=== PATIENT | male | born 1985 | race Two or more races ===

== ENCOUNTER 2020-05-27 10:14 | Inpatient (IN) | payer OTHER ==
[2020-05-27 10:23] VITALS: BMI 26.2
[2020-05-27] MEDS ORDERED: IBUPROFEN 600 MG TABLET (FP) PO ONE ×2 (10:34→10:36)
[2020-05-27] MEDS ORDERED: LACTATED RINGERS SOLUTION 1000 ML INFUS.BAG IV ONE (10:57)
[2020-05-27 11:20] LABS: EPI CELLS 15 /uL (0-25.1); HYALINE CASTS 10 /uL (0-3.1); URINE APPEARANCE TURBID; URINE BILIRUBIN 1+ (NEGATIVE); URINE COLOR ORANGE; URINE GLUCOSE (UA) NEGATIVE (NEGATIVE); URINE KETONE NEGATIVE (NEGATIVE); URINE LEUK ESTERASE 1+ (NEGATIVE); URINE NITRITE POSITIVE (NEGATIVE); URINE PROTEIN 2+ (NEGATIVE); URINE RBC 18808 /uL (0-23.9); URINE WBC 111 /uL (0-25.8)
[2020-05-27 11:41] LABS: BASO % 0.8 % (0-2.0); EOS % 2.8 % (0-4.5); HEMATOCRIT 44.5 % (35.4-49); HEMOGLOBIN 15.4 GM/dL (11.7-16.9); LYMPH % 44.4 % (8-40); MCH 28.9 pg (25.7-33.7); MCHC 34.6 g/dl (32.0-35.9); MEAN CELL VOLUME 83.6 fl (80-96); MONO % 7.1 % (3.8-10.2); NEUT % 44.9 % (42.8-82.8); PLATELET COUNT 276 K/MM3 (134-434); RBC 5.33 M/mm3 (4.00-5.60); RDW 13.8 % (11.9-15.9); WHITE BLOOD COUNT 5.4 K/mm3 (4.0-10.0)
[2020-05-27 11:56] LABS: POTASSIUM 4.2 mmol/L (3.5-5.1)
[2020-05-27 11:58] LABS: BLOOD UREA NITROGEN 18.4 mg/dL (7-18)
[2020-05-27 12:01] LABS: CREATININE 1.2 mg/dL (0.55-1.3)
[2020-05-27] MEDS ORDERED: CEFTRIAXONE 1,000 MG in DEXTROSE 5%-WATER - 50 ML IVPB ONE (12:03)
[2020-05-27] MEDS ORDERED: CEFTRIAXONE 1 GM/50 ML BAG ONE (12:06)
[2020-05-27] MEDS ORDERED: TAMSULOSIN HCL 0.4 MG CAP PO ONE (13:01)
[2020-05-27] MEDS ORDERED: MORPHINE SULFATE 2 MG/ML VIAL IVPUSH PRN (13:33)
[2020-05-27] MEDS ORDERED: LACTATED RINGERS SOLUTION 1,000 ML/1,000 ML INFUS.BAG IV SCH (17:15)
[2020-05-28 07:08] VITALS: BP 98/65; PULSE 53; TEMP 97.8
[2020-05-28] MEDS ORDERED: ALBUTEROL SO4 HFA INHALER IH PRN (08:15)
[2020-05-28] MEDS ORDERED: TAMSULOSIN HCL 0.4 MG CAP PO SCH (08:30)
[2020-05-28 08:42] LABS: BASO % 0.6 % (0-2.0); EOS % 4.2 % (0-4.5); HEMATOCRIT 43.3 % (35.4-49); HEMOGLOBIN 14.9 GM/dL (11.7-16.9); LYMPH % 41.1 % (8-40); MCH 28.8 pg (25.7-33.7); MCHC 34.3 g/dl (32.0-35.9); MEAN CELL VOLUME 84.1 fl (80-96); MEAN PLT VOLUME 8.3 fl (7.5-11.1); MONO % 7.4 % (3.8-10.2); NEUT % 46.7 % (42.8-82.8); PLATELET COUNT 232 K/MM3 (134-434); RBC 5.15 M/mm3 (4.00-5.60); RDW 13.9 % (11.9-15.9); WHITE BLOOD COUNT 5.3 K/mm3 (4.0-10.0)
[2020-05-28] MEDS ORDERED: DEXTROSE 5%-WATER - 50 ML IVPB ONE (08:48)
[2020-05-28] MEDS ORDERED: cefTRIAXone SODIUM 1 GM VIAL ONE (08:48)
[2020-05-28 08:55] LABS: POTASSIUM 4.1 mmol/L (3.5-5.1)
[2020-05-28] MEDS ORDERED: CEFTRIAXONE 1 GM in DEXTROSE 5%-WATER - 50 ML IVPB SCH ×2 (09:00→10:00)
[2020-05-28 09:09] LABS: ALBUMIN 3.5 g/dl (3.4-5.0); BLOOD UREA NITROGEN 13.7 mg/dL (7-18)
[2020-05-28 09:10] LABS: CALCIUM 8.6 mg/dL (8.5-10.1); MAGNESIUM 1.9 mg/dL (1.8-2.4)
[2020-05-28 09:14] LABS: BILIRUBIN,TOTAL 0.5 mg/dL (0.2-1); TOT PROT 6.6 g/dl (6.4-8.2)
== END 2020-05-28 11:57 | disposition home or self-care (01) | DRG 690 ==
LOC: JER 10:14 → JERBED 12:04 → J6S 13:09
PROVIDERS: ADMIT Internal Medicine; ATTEND Student in an Organized Health Care Education/Training Program
DX: N13.6 Pyonephrosis (principal); N39.0 Urinary tract infection, site not specified; J45.909 Unspecified asthma, uncomplicated; R10.32 Left lower quadrant pain; R31.9 Hematuria, unspecified
CPT/HCPCS: 36415; 74176-TC; 80048; 80053; 81003; 83735; 84100; 84443; 85025; 87086; 87491; 87591; 93005; 93010; 99285-25; C9803; U0003

== ENCOUNTER 2023-11-26 06:16 | Day surgery (SDC) | payer OTHER ==
[2023-11-21 14:15] VITALS: BMI 25.1
[2023-11-26] MEDS ORDERED: ceFAZolin SODIUM 1 GM VIAL ONE (07:09)
[2023-11-26] MEDS ORDERED: PROPOFOL 40 ML ONE (07:10)
[2023-11-26] MEDS ORDERED: MIDAZOLAM HCL 2 MG/2 ML SINGLE DOSE VIAL ONE (07:10)
[2023-11-26] MEDS ORDERED: DEXAMETHASONE SOD PHOSPHATE 4 MG/1 ML VIAL ONE (07:24)
[2023-11-26] MEDS ORDERED: BUPIVACAINE HCL/PF 0.5% (5MG/ML) 10 ML VIAL ONE (07:25)
[2023-11-26] MEDS ORDERED: LIDOCAINE HCL 1%, 10 MG/ML (20ML VIAL) ONE (07:25)
[2023-11-26] MEDS ORDERED: PROPOFOL 20 ML ONE (08:26)
[2023-11-26] MEDS ORDERED: ONDANSETRON 4 MG/2 ML VIAL IVPUSH PRN (08:44)
[2023-11-26] MEDS ORDERED: oxyCODONE HCL 5 MG TABLET PO PRN (08:44)
[2023-11-26] MEDS ORDERED: LACTATED RINGERS SOLUTION 1,000 ML IV SCH (08:45)
[2023-11-26 09:22] VITALS: RESP 18; TEMP 97.6
[2023-11-26 09:57] VITALS: BP 109/61; PULSE 61
== END 2023-11-26 10:32 | disposition home or self-care (01) ==
LOC: FASU 06:16
PROVIDERS: ATTEND Podiatrist
PROC: 0SRQ0JZ Replacement of Left Toe Phalangeal Joint with Synthetic Substitute, Open Approach (ICD-10-PCS; principal; 2023-11-26 08:02)
DX: M20.42 Other hammer toe(s) (acquired), left foot (principal)
CPT/HCPCS: 73630-TC-LT; 88304-TC; 88311-TC; 94760